=== PATIENT | male | born 1975 | race Two or more races ===

== ENCOUNTER 2023-07-26 20:33 | Emergency (ER) | payer MEDICAID ==
[~2023-07-26] VITALS: Ht 167.6 cm; Wt 86.2 kg
[2023-07-26] MEDS ORDERED: METR500T PO (23:59)
[2023-07-26] MEDS ORDERED: OMEP20TA20 PO (23:59)
[2023-07-26] MEDS ORDERED: TETR-57 PO (23:59)
[2023-07-26] MEDS ORDERED: ACET1TAB23 PO (23:59)
[2023-07-26] MEDS ORDERED: BISM262T15 PO (23:59)
[2023-07-27 00:57] VITALS: BP 152/78; O2SAT 97
== END 2023-07-27 00:57 | disposition home or self-care (01) ==
LOC: ER 20:48
DX: K27.9 Peptic ulcer, site unspecified, unspecified as acute or chronic, without hemorrhage or perforation (principal); Z90.49 Acquired absence of other specified parts of digestive tract; Z79.2 Long term (current) use of antibiotics; Z79.899 Other long term (current) drug therapy
CPT/HCPCS: 86403; A4663